=== PATIENT | female | born 2005 | race Caucasian/White ===

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

== ENCOUNTER 2023-08-03 10:53 | Emergency (ER) | payer MEDICAID ==
[~2023-08-03] VITALS: Ht 144.8 cm; Wt 61.2 kg
[~2023-08-03 10:53] MED LIST: ACYC400T19 PO
[2023-08-03 11:02] VITALS: BP_SYST 138; PULSE 102; RESP 15; TEMP 98.8; O2SAT 99
[2023-08-03] MEDS ORDERED: IBUP-1969 PO (12:47)
[2023-08-03] MEDS ORDERED: AMOX250C PO (12:47)
[2023-08-03 12:53] VITALS: BP_SYST 138; PULSE 102; RESP 15; TEMP 98.8; O2SAT 99
== END 2023-08-03 12:50 | disposition home or self-care (01) ==
LOC: SED 10:53
DX: J02.9 Acute pharyngitis, unspecified (principal); R05.9 Cough, unspecified; R09.89 Other specified symptoms and signs involving the circulatory and respiratory systems; Z79.899 Other long term (current) drug therapy
CPT/HCPCS: 36415; 71045; 86308; 99284

== ENCOUNTER 2023-10-21 17:06 | Emergency (ER) | payer SELFPAY ==
[~2023-10-21] VITALS: Ht 144.8 cm; Wt 59.0 kg
[~2023-10-21 17:06] MED LIST changes: +AMOX250C PO; +IBUP-1969 PO
[2023-10-21 17:30] VITALS: BP_SYST 121; PULSE 92; RESP 18; TEMP 98.3; O2SAT 98
[2023-10-21] MEDS ORDERED: TRAM50TA2 PO ×2 (19:59→20:01)
[2023-10-21] MEDS ORDERED: IBUP-1969 PO (19:59)
[2023-10-21] MEDS ORDERED: CEPH-548 PO (19:59)
[2023-10-21] MEDS: cephALEXin 500 MG CAPSULE PO ONE (20:17)
[2023-10-21] MEDS: IBUPROFEN 600 MG TABLET PO ONE (20:17)
[2023-10-21] MEDS: HYDROcodone/ACETAMIN 10-325 MG TAB PO ONE (20:17)
[2023-10-21 20:39] VITALS: BP_SYST 121; PULSE 94; RESP 20; TEMP 98.3; O2SAT 93
== END 2023-10-21 20:38 | disposition home or self-care (01) ==
LOC: SED 17:06
DX: K08.89 Other specified disorders of teeth and supporting structures (principal); K02.9 Dental caries, unspecified; Z79.899 Other long term (current) drug therapy; Z79.2 Long term (current) use of antibiotics
CPT/HCPCS: 99284